=== PATIENT | male | born 1990 | race Two or more races ===

== ENCOUNTER 2022-12-17 20:01 | Emergency (ER) | payer OTHER ==
[~2022-12-17] VITALS: Ht 165.1 cm; Wt 100.1 kg
[2022-12-17 20:11] VITALS: BP 151/93; PULSE 97; RESP 16; TEMP 98.4; O2SAT 98
[2022-12-17] MEDS ORDERED: PRED20TA2 PO (21:51)
[2022-12-17] MEDS ORDERED: DIPH25CA51 PO (21:51)
[2022-12-17] MEDS ORDERED: CLIN300C70 PO (21:51)
[2022-12-17] MEDS ORDERED: DexAMETHasone SOD PHOS 10MG/1ML VIAL INJ IM ONE (22:00)
[2022-12-17] MEDS ORDERED: CLINDAMYCIN HCL 150 MG CAP PO ONE (22:00)
[2022-12-17] MEDS ORDERED: FAMOTIDINE 20 MG TAB PO ONE (22:00)
[2022-12-17] MEDS ORDERED: diphenhdrAMINE HCL 25 MG CAP PO ONE (22:00)
== END 2022-12-17 22:21 | disposition home or self-care (01) ==
LOC: ER 20:01
DX: L03.114 Cellulitis of left upper limb (principal); T63.441A Toxic effect of venom of bees, accidental (unintentional), initial encounter; Z79.2 Long term (current) use of antibiotics; Z79.899 Other long term (current) drug therapy; Y92.89 Other specified places as the place of occurrence of the external cause
CPT/HCPCS: 96372; 99283; J1100